=== PATIENT | male | born 1980 | race Caucasian/White ===

== ENCOUNTER 2022-06-11 10:17 | Emergency (ER) | payer OTHER, SELFPAY ==
[2022-06-11 10:19] VITALS: BP 148/88; PULSE 92; RESP 12; TEMP 35.9; O2SAT 100
--- NOTE | 2022-06-11 11:25 | ED.UPPEXIN ---
HPI - Extremity Injury (Upper) General Chief Complaint: Extremity Injury, Upper Stated Complaint: right arm inju Time Seen by Provider: 06/11/22 10:29 Source: patient Mode of arrival: ambulatory Limitations: no limitations History of Present Illness HPI narrative: This is a 42-year-old male that presents to the emergency department for right arm injury sustained just prior to arrival. Reports he accidentally cut his arm on a piece of [place]. Reports bleeding and pain to the area. Patient is up-to-date on tetanus. Denies decreased range of motion or numbness. Related Data Home Medications Medication Instructions Recorded Confirmed No Home Medications 06/11/22 06/11/22 Allergies Allergy/AdvReac Type Severity Reaction Status Date / Time No Known Allergies Allergy Verified 06/11/22 10:32 Review of Systems Review of Systems: CONSTITUTIONAL: Denies fever INTEGUMENTARY: Reports laceration All systems reviewed & are unremarkable except as noted in HPI and below PMFSH Past Medical History Medical History (Updated 06/11/22 @ 12:27 by Philomena Grant PA-C) No active medical problems Social History Social History (Updated 06/11/22 @ 11:26 by Philomena Grant PA-C) Smoking status: Never smoker Exam Narrative: GENERAL: Well-appearing, well-nourished, and in no acute distress. HEAD: Normocephalic, atraumatic. EYES: EOMI. EXTREMITIES: Normal range of motion. No edema. 4cm linear laceration into subcutaneous tissue to the right upper arm SKIN: Warm, dry, no rash. NEURO: No focal deficits. Alert and oriented x3. PSYCH: Normal mood and affect Course Vital Signs Vital signs: Vital Signs Temperature 96.6 F L 06/11/22 10:19 Pulse Rate 92 06/11/22 10:19 Respiratory Rate 12 06/11/22 10:19 Blood Pressure 148/88 H 06/11/22 10:19 Pulse Oximetry 100 06/11/22 10:19 Temperature 96.6 F L 06/11/22 10:19 Pulse Rate 87 06/11/22 12:25 Respiratory Rate 18 06/11/22 12:25 Blood Pressure 148/90 H 06/11/22 12:25 Pulse Oximetry 99 06/11/22 12:25 Procedures Laceration Laceration 1: Date: 06/11/22 Time: 12:26 Site: upper extremity Side (If applicable): right Size (cm): 4 Description: linear Depth: simple, single layer Local Anesthetic: lidocaine 1% and with epi Amount of anesthesia used (mL): 3 Pre-repair: irrigated ====== Skin Level ====== Skin layer closed with: nylon Size (cm): 4-0 Number of sutures: 7 Technique: simple, interrupted ====== Subcutaneous Layer ====== ====== Muscle Layer ====== ====== Tendon Layer ====== MDM - Extremity Injury (Upper) MDM Narrative Medical decision making narrative: Patient presents emergency department for laceration to the right upper arm sustained just prior to arrival. Patient wound was irrigated and closed with sutures. He is neurovascularly intact. Instructed on wound care. He is up-to-date on tetanus. He is to follow-up with primary care doctor. He was given warnings to return to the ER Critical Care Time Critical Care Time Critical Care Time: No Discharge Plan Discharge Clinical Impression: Laceration Patient Disposition: Home, Self-Care Condition: Stable Instructions: Care For Your Stitches (ED), Laceration (ED) Additional Instructions: Return to the emergency department if you experience fever, redness or swelling of your wound, abnormal drainage from your wound, or any other symptoms that are concerning to you. Apply antibiotic ointment daily. Do not soak the wound. Clean with mild soap and water daily Follow-up with your primary care doctor for suture removal in 10-14 days. Prescriptions: No Action No Home Medications Follow-up/Referrals: UNKNOWN,DOCTOR [Primary Care Provider] - 2 Weeks
[2022-06-11 12:25] VITALS: BP 148/90; PULSE 87; RESP 18; O2SAT 99
== END 2022-06-11 12:38 | disposition home or self-care (01) ==
PROVIDERS: Emergency Provider Emergency Medicine
DX: S41.111A Laceration without foreign body of right upper arm, initial encounter (principal); W26.8XXA Contact with other sharp object(s), not elsewhere classified, initial encounter
CPT/HCPCS: 12002; 99282